=== PATIENT | female | born 1995 | race African-American/Black ===

== ENCOUNTER 2019-11-12 13:15 | Day surgery (SDC) | payer OTHER ==
[2019-11-12 13:51] VITALS: BMI 27.0
[2019-11-12] MEDS ORDERED: hydrALAZINE 20 MG/ML VIAL SLOW IVP PRN (14:49)
--- NOTE | 2019-11-12 14:57 | PDOC.EVN ---
Event Note - Event Note Event Note: Pt seen at bedside...see dictation. Continue monitoring for now
--- NOTE | 2019-11-12 15:15 | HP ---
TIME OF EVALUATION: 14:30. LOCATION: Labor and Delivery triage and bed B. This is a patient of Paloma Mcdaniels MD REASON FOR EVALUATION: Suspected contractions at 38 weeks. HISTORY OF PRESENT ILLNESS: This is a 24-year-old , G2, P0 with an EDC of November 24, who is at 38 to 39 weeks with a complaint of possible contractions. She denies vaginal bleeding or leakage of fluid. She denies recent trauma. She has good movement. She denies headache, visual changes, or GI or symptoms. REVIEW OF SYSTEMS: Complete review of systems was checked and is otherwise negative unless specified in the HPI. PAST MEDICAL HISTORY: Negative. PAST OB HISTORY: She has had a miscarriage with a D and C in the past. For this , she has gestational diabetes and she is diet controlled. ALLERGIES: NONE. SURGICAL HISTORY: D and C and wisdom teeth. PHYSICAL EXAMINATION: VITAL SIGNS: She is afebrile and normotensive. The patient's blood pressure was around 120s over 70s. Pulse was in the 80s and respirations were 18 and nonlabored. GENERAL: She is in no acute distress. ABDOMEN: Gravid and appears size consistent with dates. VAGINAL EXAM: Her cervix is closed, thick, and high with no gross evidence of rupture or vaginal bleeding. Bedside ultrasound was performed by Dr. Bri Johnson to confirm the baby was in a cephalic presentation and baby is in the cephalic presentation. On external monitor, heart tones on the tocodynamometer show a baseline of around 130s to 140s with [id number] variability. There was one deceleration for about 40 seconds, but this had spontaneous resolution. Because of this, we have elected to keep her on the monitor for another hour. ASSESSMENT: This is a G2, P0, at 38 weeks with no evidence of labor, but with Prem Morales contractions. She had one deceleration on the nonstress test/ monitor. PLAN: 1. If the deceleration is a persistent issue, we will order a biophysical profile and possibly consider induction. 2. An isolated deceleration may be a cord compression by movement and if non-recurrent, we will simply monitor continuously for this additional hour. 3. The patient has good movement. 4. No indication of true labor at this time. 5. Continue observation for now. Job ID: [id number]
--- NOTE | 2019-11-12 15:48 | PDOC.EVN ---
Event Note - Event Note Event Note: Review of NST (prolonged) with great accels and moderate variability...no CX change. CX is closed. OK for outpatient care.
== END 2019-11-12 16:12 | disposition home or self-care (01) ==
LOC: L&D/OP 13:15
PROVIDERS: ATTEND Obstetrics & Gynecology
DX: O47.1 False labor at or after 37 completed weeks of gestation (principal); O24.410 Gestational diabetes mellitus in pregnancy, diet controlled; O09.293 Supervision of pregnancy with other poor reproductive or obstetric history, third trimester; Z3A.38 38 weeks gestation of pregnancy
CPT/HCPCS: 76815; 99282

== ENCOUNTER 2019-11-19 03:15 | Inpatient (IN) | payer OTHER ==
[2019-11-19] MEDS ORDERED: hydrALAZINE 20 MG/ML VIAL SLOW IVP PRN ×2 (03:35→14:26)
[2019-11-19] MEDS ORDERED: Butorphanol Tartrate 1 MG/ML VIAL SLOW IVP PRN (03:35)
[2019-11-19] MEDS ORDERED: Acetaminophen 500 MG TAB PO PRN (03:35)
[2019-11-19] MEDS ORDERED: NS / Oxytocin 40 units/1000ml 1,000 ML IV PRN (03:35)
[2019-11-19] MEDS ORDERED: Ondansetron PF 4 MG/2 ML Vial IVP PRN ×3 (03:35→14:26)
[2019-11-19] MEDS ORDERED: Ibuprofen 800 MG TAB PO PRN (03:35)
[2019-11-19] MEDS ORDERED: Promethazine HCl 25 MG/ML VIAL IM PRN ×2 (03:35→08:42)
[2019-11-19] MEDS ORDERED: Lidocaine 1% (PF) 30 ML VIAL SC PRN (03:35)
--- NOTE | 2019-11-19 03:41 | PDOC.FPROB ---
FMR OB H&P: HPI - History of Present Illness Chief Complaint: Leaking of fluid, contractions Indentification: 24 year old at 39.2 wks History of Present Illness: 24 year old at 39.2 wks presents with gush of fluid at 2:46 AM. Contractions started up shortly thereafter. Patient with history of A1GDM, well controlled. She denies vaginal bleeding. Endorses contractions. Endorses good movement. 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 - Surgical History Sx History: D&C - Social History Social History: Denies tobacco, alcohol, or drug use FMR OB H&P: Medications - Current Home Medications: Medication Instructions Recorded Confirmed Type Pnv No.95/Ferrous Fum/Folic AC 1 each PO 11/12/19 History [ [place]] Allergies/Adverse Reactions: Allergies Allergy/AdvReac Type Severity Reaction Status Date / Time No Known Allergies Allergy Unverified 11/12/19 13:49 FMR OB H&P: ROS - Review of Systems General: denies: fever/chills, weight/appetite/sleep changes Eyes: denies: vision changes, double vision ENT: denies: nasal congestion, rhinorrhea, sore throat Cardiovascular: denies: chest pain, palpitation, edema Respiratory: denies: cough, congestion, shortness of breath Gastrointestinal: reports: abdominal pain. denies: nausea, vomiting Genitourinary (Female): reports: vaginal discharge (leaking of fluid), contractions. denies: dysuria, vaginal bleeding Musculoskeletal: denies: pain, stiffness Neurologic: denies: numbness, syncope Integumentary: denies: itching, rash Psychological: denies: depression, anxiety FMR OB H&P: Vital Signs - Maternal Vital signs: BP 117/73 Pulse 100 Afebrile - Heart Tones Baseline: 140 Variability: moderate Acceleration: present Deceleration: absent Category: category 1 [place] contractions every: q8 min FMR OB H&P: Physical Exam - Physical Exam General: awake, alert and oriented Deviation from normal: Breathing through contractions HEENT: MMM, grossly normal vision, grossly normal hearing Heart: RRR, pulses present General: no respiratory distress Abdomen: soft, gravid Musculoskeletal: pulses present, FROM in all four extremities Neurological: no tremor, no focal deficit Skin: no rash, capillary refill <2 seconds Lymphatic: no unusual bruising or bleeding, no purpura Psychiatric: intact recent and remote memory, good judgement and insight, normal mood and affect - Pelvic Exam Presentation: Cephalic FMR OB H&P: A/P - Problem List (1) Term Current Visit: Yes Status: Acute Code(s): Z34.90 - ENCNTR FOR SUPRVSN OF NORMAL , UNSP, UNSP TRIMESTER (2) PROM (premature rupture of membranes) Current Visit: Yes Status: Acute Code(s): O42.90 - DARRYL ROM, 7TH0 BETW RUPT & ONST LABR, UNSP WEEKS OF GEST (3) GDM, class A1 Current Visit: Yes Status: Acute Code(s): O24.410 - GESTATIONAL DIABETES MELLITUS IN , DIET CONTROLLED (4) GBS (group B Streptococcus carrier), +RV culture, currently Current Visit: Yes Status: Acute Code(s): O99.820 - STREPTOCOCCUS B CARRIER STATE COMPLICATING Disposition: TIUP, PROM - Admit to L&D - Expectant management - GBS positive, will start Pen G for ppx - /-1, vertex - SROM, clear fluid at 2:40 AM A1GDM - Will get accucheck - Well controlled during GBS positive - Will start Pen G for ppx Dispo: Admit to L&D for expectant management. Will augment if necessary. Discussion: Date/Time: 11/19/19 2614 This H&P was discussed with Dr. Hu who agrees with the above documentation and plan. Signature: Mary Quevedo, DO PGY-3
[2019-11-19] MEDS: Lactated Ringer's 1,000 ML IV SCH ×2 (03:50→07:51)
[2019-11-19] MEDS ORDERED: Penicillin G Potassium 5 MILL.UNITS in Sodium Chloride 0.9% 100 ML IVPB SCH (04:00)
[2019-11-19 04:17] LABS: Mean Corpuscular Hemoglobin 29.4 pg (27.0-31.0); Mean Corpuscular Volume 86.6 fL (78.0-98.0); Mean Platelet Volume 8.4 fL (7.4-10.4); Platelet Count 225 thou/uL (130-400); RBC Distribution Width 12.8 % (11.5-14.5); Red Blood Cell (RBC) Count 4.74 mill/uL (4.20-5.40)
[2019-11-19 04:42] VITALS: BMI 26.9
[2019-11-19 04:50] LABS: Hep B Surf Ag Non-Reactive S/CO (NonReactive)
[2019-11-19 05:48] LABS: Syphilis Antibody Nonreactive (Nonreactive); Syphilis Antibody Index 0.05 S/CO (<1.00 Non-Reactive)
[2019-11-19] MEDS ORDERED: Fentanyl 4 mcg/Bup 0.1% Cadd 100 ML ONE (07:29)
[2019-11-19] MEDS: Penicillin G 2.5 MILL.units 2.5 MILL.UNITS in Premix Bag 1 BAG IVPB SCH ×2 (07:52→11:50)
[2019-11-19] MEDS ORDERED: Lactated Ringer's 500 ML IV PRN (08:42)
[2019-11-19] MEDS ORDERED: diphenhydrAMINE 50 MG/ML VIAL IVP PRN (08:42)
[2019-11-19] MEDS ORDERED: ePHEDrine/0.9% NaCl/PF SYRINGE 50 mg/10 ml SLOW IVP PRN (08:42)
[2019-11-19] MEDS ORDERED: Naloxone HCl 0.4 mg/ml Vial IVP PRN ×2 (08:42)
[2019-11-19] MEDS ORDERED: Acetaminophen 325 MG TAB PO PRN (08:42)
[2019-11-19] MEDS ORDERED: Communication Order-Pharmacy FS PRN (08:45)
[2019-11-19] MEDS ORDERED: Fentanyl 4 mcg/Bupivacaine 0.1% Cassette 100 ML EPIDURAL SCH (08:45)
[2019-11-19] MEDS ORDERED: NS w/ Oxytocin 10 units 500 ML IV SCH (09:30)
[2019-11-19] MEDS ORDERED: Milk Of Magnesia 30 ML UDCUP PO PRN (14:26)
[2019-11-19] MEDS ORDERED: Adacel (T-DAP) 0.5 ML SYRINGE IM ONE (14:26)
[2019-11-19] MEDS ORDERED: Bisacodyl 10 MG SUPP PR PRN (14:26)
[2019-11-19] MEDS ORDERED: Benzocaine-Menthol 82.5 ML CAN TOP PRN (14:26)
[2019-11-19] MEDS ORDERED: Preparation H Ointment 28 GM TUBE PR PRN (14:26)
[2019-11-19] MEDS ORDERED: Lanolin Ointment 7 GM TUBE TOP PRN (14:26)
[2019-11-19] MEDS ORDERED: diphenhydrAMINE 25 MG CAP PO PRN (14:26)
--- NOTE | 2019-11-19 14:26 | PDOC.OPDEL ---
OB Operative/Delivery Note Delivery Dr/Surgeon: Chen Quevedo Pre-Delivery Diagnosis: ruptured membrane Procedure/Post Delivery Dx: spontaneous vaginal delivery Anesthesia: epidural - Findings A Sex: male Weight: 2.958 kg - 1 min: 8 - 5 min: 9 - Additional Findings/Plan Placenta delivered: spontaneous Repaired Obstetrical Laceration: other (Periurethral and 1st degree laceration, hemostatic) Estimated blood loss: 268 mL Compilations/Other Findings: Delivering Physician: Sae Attending: Chen Procedure: Spontaneous Vaginal Delivery Anesthesia: Epidural EBL: 268 mL Pre-op Diagnosis: 1. Term intrauterine 2. Prelabor rupture of membranes 3. Hx SAB x1 4. A1GDM Post-op Diagnosis: 1. Term intrauterine , delivered 2. same as above Indications: A 24 y/o female presents at term with prelabor rupture of membranes. Delivery Note: This is 24 yo F @ 39.2 wks who delivered a viable M infant at 12:38 on 11/19/2019. Following an uneventful intrapartum course, a vigorous M was delivered over an intact perineum in the occipitoanterior position. Restitution to maternal left. Anterior hand and arm noted to be near 's face. Full flexion of anterior arm performed prior to delivery. Anterior shoulder and then remainder of the body then delivered. No nuchal cord. The head was held down and mouth and nares were bulb suctioned. Cord clamped and cut and cord blood collected. Placenta delivered intact with a 3 vessel cord noted. Fundal massage was performed and the fundus was firm. The cervix and vagina were inspected and a hemostatic first degree laceration and right periurethral laceration were noted. No repair was necessary. went to nursery in good condition for routine care. Apgars were 8/9 at 1 & 5 minutes, respectively. Patient tolerated delivery well and went to after routine recovery/care. Post delivery plan: routine recovery Addendum - Attending - Attending Attestation Date/Time: 11/22/19 3644 I was personally present for the 2nd and 3rd stages of labor supervising Dr Quevedo. I agree with the above documentation.
[2019-11-19] MEDS ORDERED: NS / Oxytocin 40 units/1000ml 1,000 ML IV SCH (14:30)
[2019-11-19] MEDS: Ferrous Sulfate 325 MG TAB PO SCH (18:31)
[2019-11-19] MEDS: Docusate Calcium (SURFAK) 240 MG CAP PO SCH (21:29)
[2019-11-19] MEDS: Ibuprofen 800 MG TAB PO SCH (21:30)
[2019-11-20] MEDS: Ibuprofen 800 MG TAB PO SCH ×3 (05:41→21:10)
--- NOTE | 2019-11-20 08:05 | PRG ---
DATE OF SERVICE: 11/20/2019 SUBJECTIVE: The patient is a 24-year-old G2, P0, now P1 female, who is day 1, status post a term spontaneous vaginal delivery. The patient reports today that she has been tolerating p.o., having good pain control and decreased lochia. Most recent blood pressure is 116/59, temperature 97.8, pulse of 83, respiratory rate of 16, saturating 100% on room air. OBJECTIVE: GENERAL: She appears to be in no acute distress. She is alert, oriented, cooperative, and pleasant to interact with. GI: Fundus is firm at the umbilicus. EXTREMITIES: Nontender, nonedematous. ASSESSMENT AND PLAN: The patient is day 1, status post a term spontaneous vaginal delivery. Anticipate discharge tomorrow. Job ID: [id number]
[2019-11-20] MEDS: Docusate Calcium (SURFAK) 240 MG CAP PO SCH ×2 (08:38→21:10)
[2019-11-20] MEDS: Prenatal Vitamin 1 TAB PO SCH (08:38)
[2019-11-20] MEDS: Ferrous Sulfate 325 MG TAB PO SCH ×2 (09:03→17:11)
[2019-11-21] MEDS: Ibuprofen 800 MG TAB PO SCH (06:19)
[2019-11-21 08:27] VITALS: BP 107/57; TEMP 98.4
[2019-11-21] MEDS: Docusate Calcium (SURFAK) 240 MG CAP PO SCH (09:03)
[2019-11-21] MEDS: Ferrous Sulfate 325 MG TAB PO SCH (09:03)
[2019-11-21] MEDS: Prenatal Vitamin 1 TAB PO SCH (09:03)
== END 2019-11-21 10:50 | disposition home or self-care (01) | DRG 807 ==
LOC: L&D/OP 03:15 → L&D 03:43 → 3SE 15:01
PROVIDERS: ADMIT Obstetrics & Gynecology; ATTEND Obstetrics & Gynecology
PROC: 10E0XZZ Delivery of Products of Conception, External Approach (ICD-10-PCS; principal; 2019-11-19)
PROC: 0HQ9XZZ Repair Perineum Skin, External Approach (ICD-10-PCS; 2019-11-19)
PROC: 0UQMXZZ Repair Vulva, External Approach (ICD-10-PCS; 2019-11-19)
DX: O42.92 Full-term premature rupture of membranes, unspecified as to length of time between rupture and onset of labor (principal); Z37.0 Single live birth; O99.824 Streptococcus B carrier state complicating childbirth; O24.420 Gestational diabetes mellitus in childbirth, diet controlled; O70.0 First degree perineal laceration during delivery; O71.82 Other specified trauma to perineum and vulva; Z3A.39 39 weeks gestation of pregnancy
CPT/HCPCS: 36415; 36416; 51702; 85027; 86780; 86850; 86900; 86901; 87340; 99285; J0595; J2540; J2590; J3490